=== PATIENT | male | born 1970 | race Caucasian/White ===

== ENCOUNTER 2022-08-09 11:58 | Emergency (ER) | payer BC ==
[2022-08-09 12:14] VITALS: BP 156/86; PULSE 96
[2022-08-09] MEDS ORDERED: Oxymetazoline 0.05% Nasal Spray 30 ML Bottle NASLF ONE (12:32)
== END 2022-08-09 13:22 | disposition home or self-care (01) ==
LOC: JD.ED 11:58
DX: R04.0 Epistaxis (principal)
CPT/HCPCS: 30901; 99283; A9270; 30906